=== PATIENT | female | born 1995 | race Hispanic/Latino ===

== ENCOUNTER 2022-02-21 11:37 | Inpatient (IN) | payer MEDICAID, OTHER ==
[2022-02-22] MEDS ORDERED: hydrALAZINE 20 MG/ML VIAL SLOW IVP PRN ×2 (05:40→12:13)
[2022-02-22] MEDS ORDERED: Bicitra 30 ML UDCUP PO PRN (05:40)
[2022-02-22] MEDS ORDERED: Famotidine/PF 20 mg/2ml Vial SLOW IVP PRN (05:40)
[2022-02-22] MEDS ORDERED: Promethazine HCl 25 MG/ML VIAL IM PRN ×3 (05:40→12:13)
[2022-02-22] MEDS ORDERED: Lactated Ringer's 1,000 ML IV SCH (05:40)
[2022-02-22] MEDS ORDERED: Ondansetron PF 4 MG/2 ML Vial IVP PRN ×3 (05:40→12:13)
[2022-02-22 06:48] LABS: Hemoglobin 12.7 g/dL (12.0-15.5); Mean Corpuscular HGB CONC 33.3 g/dL (32.0-36.0); Mean Corpuscular Hemoglobin 28.9 pg (27.0-33.0); Mean Corpuscular Volume 86.6 fl (81.6-98.3); Mean Platelet Volume 11.5 fl (7.4-10.4); Platelet Count 198 10x3/uL (150-450)
[2022-02-22] MEDS ORDERED: ceFAZolin 2 GM/Dextrose 50 ML IVPB ONE (06:59)
[2022-02-22] MEDS ORDERED: Famotidine/PF 20 mg/2ml Vial ONE (06:59)
[2022-02-22] MEDS ORDERED: ceFAZolin 2 GM/Dextrose 50 ML 2 GM in Premix Bag 1 BAG IVPB SCH (07:00)
[2022-02-22 07:01] VITALS: BMI 29.7
[2022-02-22 07:20] LABS: Syphilis Antibody Nonreactive (Nonreactive); Syphilis Antibody Index 0.03 S/CO (<1.00 Non-Reactive)
[2022-02-22 07:21] LABS: Hep B Surf Ag Non-Reactive S/CO (NonReactive)
[2022-02-22 07:22] LABS: HBSAg Index 0.21 S/CO (0-0.99)
[2022-02-22] MEDS ORDERED: Morphine PF 10 MG/10 ML VIAL ONE (07:34)
[2022-02-22] MEDS ORDERED: Fentanyl 100 MCG/2 ML VIAL ONE (07:34)
[2022-02-22] MEDS ORDERED: PHENYLEPHRINE-NS 100 MCG/ML 10 ML SYRINGE ONE (07:34)
[2022-02-22] MEDS ORDERED: Dexamethasone 4 mg/ml Vial ONE (07:35)
[2022-02-22] MEDS ORDERED: Oxytocin 10 UNITS/ML VIAL ONE ×2 (07:35→08:08)
[2022-02-22] MEDS ORDERED: Ketorolac Tromethamine 30 MG/ML VIAL ONE (07:35)
[2022-02-22] MEDS ORDERED: Ondansetron PF 4 MG/2 ML Vial ONE (07:35)
[2022-02-22 08:04] LABS: SARS-CoV-2 NAA Rapid Test Not Detected (NotDetected)
[2022-02-22] MEDS ORDERED: Meperidine HCl/PF 25 MG/ML VIAL SLOW IVP PRN (08:57)
[2022-02-22] MEDS ORDERED: Naloxone HCl 0.4 mg/ml Vial IV PRN (08:57)
[2022-02-22] MEDS ORDERED: Ketorolac Tromethamine 30 MG/ML VIAL IVP PRN (08:57)
[2022-02-22] MEDS ORDERED: Naloxone HCl 0.4 mg/ml Vial IVP PRN ×2 (08:57)
[2022-02-22] MEDS ORDERED: diphenhydrAMINE 50 MG/ML VIAL IVP PRN (08:57)
[2022-02-22] MEDS ORDERED: Hydrocerin (Eucerin) Cream 120 gm Jar TOP PRN (08:57)
[2022-02-22] MEDS ORDERED: Fentanyl 100 MCG/2 ML VIAL SLOW IVP PRN (08:57)
[2022-02-22] MEDS ORDERED: Promethazine HCl 25 MG SUPP PR PRN (08:57)
[2022-02-22] MEDS ORDERED: Ondansetron HCl/PF 4 MG/2 ML Vial IVP PRN (08:57)
[2022-02-22] MEDS ORDERED: Ketorolac Tromethamine 30 MG/ML VIAL IVP SCH (09:00)
[2022-02-22] MEDS ORDERED: Communication Order-Pharmacy FS SCH (09:00)
[2022-02-22] MEDS ORDERED: diphenhydrAMINE 25 MG CAP PO PRN (12:13)
[2022-02-22] MEDS ORDERED: Simethicone Chewable 80 MG TAB PO PRN (12:13)
[2022-02-22] MEDS ORDERED: Lanolin Ointment 7 GM TUBE TOP PRN (12:13)
[2022-02-22] MEDS ORDERED: NS w/ Oxytocin 30 units 500 ML IV SCH (12:13)
[2022-02-22] MEDS ORDERED: Bisacodyl 10 MG SUPP PR PRN (12:13)
[2022-02-22] MEDS ORDERED: Boostrix 0.5 ML (Tdap) VIAL IM ONE (12:13)
[2022-02-22] MEDS ORDERED: Ferrous Sulfate 325 MG TAB PO SCH (12:45)
[2022-02-22] MEDS ORDERED: Prenatal Vitamin 1 TAB PO SCH (12:45)
[2022-02-22] MEDS: Ketorolac Tromethamine 30 MG/ML VIAL IVP SCH ×2 (16:25→21:56)
[2022-02-22] MEDS: Ferrous Sulfate 325 MG TAB PO SCH (21:59)
[2022-02-23 03:28] LABS: Hemoglobin 10.5 g/dL (12.0-15.5); Mean Corpuscular HGB CONC 34.2 g/dL (32.0-36.0); Mean Corpuscular Hemoglobin 29.2 pg (27.0-33.0); Mean Corpuscular Volume 85.3 fl (81.6-98.3); Mean Platelet Volume 11.3 fl (7.4-10.4); Platelet Count 172 10x3/uL (150-450); RBC Distribution Width 13.9 % (11.5-14.5); White Blood Cell (WBC) Count 11.5 10x3/uL (3.5-10.5)
[2022-02-23] MEDS: Ketorolac Tromethamine 30 MG/ML VIAL IVP SCH ×2 (03:41→09:11)
[2022-02-23] MEDS: Ferrous Sulfate 325 MG TAB PO SCH ×2 (09:12→21:16)
[2022-02-23] MEDS: Prenatal Vitamin 1 TAB PO SCH (09:14)
[2022-02-23] MEDS: HYDROcodone/Acetaminophen 5/325 mg Tablet PO PRN ×3 (09:21→18:43)
[2022-02-23] MEDS: Ibuprofen 800 MG TAB PO SCH ×2 (14:42→21:15)
[2022-02-24] MEDS: HYDROcodone/Acetaminophen 5/325 mg Tablet PO PRN ×5 (00:17→21:42)
[2022-02-24] MEDS: Ibuprofen 800 MG TAB PO SCH ×3 (05:51→21:42)
[2022-02-24] MEDS: Prenatal Vitamin 1 TAB PO SCH (08:03)
[2022-02-24] MEDS: Ferrous Sulfate 325 MG TAB PO SCH ×2 (10:58→21:41)
[2022-02-25] MEDS: HYDROcodone/Acetaminophen 5/325 mg Tablet PO PRN ×2 (02:18→09:03)
[2022-02-25] MEDS: Ibuprofen 800 MG TAB PO SCH ×2 (04:51→15:01)
[2022-02-25 07:44] VITALS: BP 130/92; TEMP 98.7
[2022-02-25] MEDS: Ferrous Sulfate 325 MG TAB PO SCH (08:44)
[2022-02-25] MEDS: Prenatal Vitamin 1 TAB PO SCH (09:02)
== END 2022-02-25 15:00 | disposition home or self-care (01) | DRG 788 ==
LOC: CSHLD 02-22 05:48 → CSHPP 02-22 11:50
PROVIDERS: ADMIT Family Medicine; ATTEND Family Medicine
PROC: 10D00Z1 Extraction of Products of Conception, Low, Open Approach (ICD-10-PCS; principal; 2022-02-22)
DX: O32.1XX0 Maternal care for breech presentation, not applicable or unspecified (principal); Z3A.40 40 weeks gestation of pregnancy; Z37.0 Single live birth; Z20.822 Contact with and (suspected) exposure to COVID-19
CPT/HCPCS: 36415; 51702; 85027; 86780; 86850; 86900; 86901; 87340; J0690; J1100; J1200; J1885; J2274; J2405; J2590; J3010; J7120; S0028; U0002